=== PATIENT | female | born 1930 | race Caucasian/White ===

== ENCOUNTER 2016-10-05 17:52 | Emergency (ER) | payer MEDICARE ==
[2016-10-05 18:06] VITALS: RESP 18; TEMP 98.8
[2016-10-05] MEDS ORDERED: SODIUM CHLORIDE 0.9% 1,000 ML IV STA (18:18)
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
[2016-10-05 18:43] LABS: Basophils % (A) 1 %; CH 27.5; CHCM 32.1; Eosinophils # (A) 0.2 k/uL (0-0.7); Eosinophils % (A) 3 %; HCT 42.1 % (34.0-46.0); HDW 2.53; HGB 13.3 gm/dL (11.4-16.0); Luc # (Auto) 0.22; Luc % (Auto) 3; Lymphocytes # (A) 1.8 k/uL (1.0-4.8); Lymphocytes % (A) 28 %; MCH 27.2 pg (25.0-35.0); MCHC 31.7 g/dL (31.0-37.0); MCV 85.8 fL (80.0-100.0); Mean Platelet Volume 7.2; Monocytes # (A) 0.4 k/uL (0-1.0); Monocytes % (A) 7 %; Neutrophils # (A) 3.7 k/uL (1.3-7.7); Neutrophils % (A) 58 %; RBC 4.91 m/uL (3.80-5.40); RDW 14.9 % (11.5-15.5); WBC 6.4 k/uL (3.8-10.6); WBC (Perox) 6.15
[2016-10-05 18:52] LABS: Calcium 9.2 mg/dL (8.4-10.2); Magnesium 2.2 mg/dL (1.6-2.3); Potassium 4.3 mmol/L (3.5-5.1); Total Bilirubin 0.4 mg/dL (0.2-1.3); Total Protein 7.2 g/dL (6.3-8.2)
[2016-10-05 19:01] LABS: INR 1.1 (<1.1); Prothrombin Time 10.9 sec (9.0-12.0)
[2016-10-05 19:07] LABS: Creatine Kinase 49 U/L (30-135)
[2016-10-05 19:14] LABS: Partial Thromboplastin Time 20.1 sec (22.0-30.0)
[2016-10-05 19:21] LABS: Creatine Kinase MB 0.9 ng/mL (0.0-2.4); Troponin I <0.012 ng/mL (0.000-0.034)
--- NOTE | 2016-10-05 20:03 | XR ---
EXAMINATION TYPE: XR chest 2V DATE OF EXAM: 10/05/2016 COMPARISON: 03/07/2016 HISTORY: Chest pain TECHNIQUE: Frontal and lateral views of the chest are obtained. FINDINGS: There are numerous old left-sided healed rib fractures. There are are a few right-sided ol d healed rib fractures. Lungs are clear of consolidation. There is no heart failure. Heart is probabl y enlarged. Thoracic aorta is atheromatous. There is no pleural effusion. IMPRESSION: Cardiomegaly. No active cardiopulmonary disease. No change. No heart failure.
[2016-10-05 20:28] LABS: Appearance,Urine Clear (Clear); Bacteria,Urine Occasional /hpf; Bilirubin,Urine Negative (Negative); Glucose,Urine (UA) Negative (Negative); Ketones,Urine Negative (Negative); Leukocyte Esterase,Urine Negative (Negative); Mucus,Urine Rare /hpf; Nitrite,Urine Negative (Negative); PH, Urine 6.5 (5.0-8.0); Particle Count 1418; Protein,Urine Negative (Negative); RBC,Urine 12 /hpf (0-5); Specific Gravity,Urine 1.015 (1.001-1.035); UA Billing (MACRO vs. MICRO) MICRO; Urobilinogen,Urine <2.0 mg/dL (<2.0); WBC,Urine 1 /hpf (0-5)
[2016-10-05 22:31] VITALS: BP 175/76; PULSE 75
== END 2016-10-05 21:20 | disposition home or self-care (01) ==
LOC: EC 17:52
DX: R60.9 Edema, unspecified (principal); M54.9 Dorsalgia, unspecified; G89.29 Other chronic pain; R42 Dizziness and giddiness; M25.562 Pain in left knee; M25.561 Pain in right knee; I10 Essential (primary) hypertension; F32.9 Major depressive disorder, single episode, unspecified; H91.90 Unspecified hearing loss, unspecified ear; Z86.73 Personal history of transient ischemic attack (TIA), and cerebral infarction without residual deficits; Z79.82 Long term (current) use of aspirin; Z79.899 Other long term (current) drug therapy
CPT/HCPCS: 36415; 51798; 71020; 80053; 81001; 82550; 82553; 83735; 83880; 84484; 85025; 85610; 85730; 87077; 87086; 87186; 93005; 96360; 96361; 99284

== ENCOUNTER 2016-12-26 14:31 | Inpatient (IN) | payer MEDICARE ==
[2016-12-26] MEDS ORDERED: SODIUM CHLORIDE 0.9% 1,000 ML IV STA (15:08)
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
[2016-12-26 16:02] LABS: Basophils # (A) 0.1 k/uL (0-0.2); Basophils % (A) 0 %; Eosinophils # (A) 0.2 k/uL (0-0.7); Eosinophils % (A) 1 %; HCT 43.2 % (34.0-46.0); HDW 2.72; HGB 14.3 gm/dL (11.4-16.0); Luc # (Auto) 0.17; Luc % (Auto) 1; Lymphocytes # (A) 0.7 k/uL (1.0-4.8); Lymphocytes % (A) 5 %; MCH 28.1 pg (25.0-35.0); MCV 85.1 fL (80.0-100.0); Mean Platelet Volume 7.8; Monocytes # (A) 0.4 k/uL (0-1.0); Monocytes % (A) 3 %; Neutrophils # (A) 11.6 k/uL (1.3-7.7); Neutrophils % (A) 88 %; RBC 5.07 m/uL (3.80-5.40); RDW 15.6 % (11.5-15.5); WBC 13.1 k/uL (3.8-10.6); WBC (Perox) 13.12
[2016-12-26 16:10] LABS: Calcium 9.3 mg/dL (8.4-10.2); Total Bilirubin 0.8 mg/dL (0.2-1.3); Total Protein 7.5 g/dL (6.3-8.2)
[2016-12-26 16:23] LABS: Creatine Kinase 37 U/L (30-135)
[2016-12-26 16:36] LABS: Creatine Kinase MB <0.2 ng/mL (0.0-2.4); Troponin I <0.012 ng/mL (0.000-0.034)
--- NOTE | 2016-12-26 16:52 | XR ---
EXAMINATION TYPE: XR chest 2V DATE OF EXAM: 12/26/2016 COMPARISON: 10/05/2016 HISTORY: Urinary tract infection. Cough. TECHNIQUE: Frontal and lateral views of the chest are obtained. FINDINGS: There is general coarsening of interstitial markings. There are numerous old bilateral hea led rib fractures. Thoracic aorta is atheromatous. There are chest leads. There is no sign of pleural effusion. IMPRESSION: Lung markings are increased slightly compared to last exam and could relate to interstit ial pneumonia. Mild heart failure cannot be entirely excluded.
[2016-12-26 17:04] LABS: Appearance,Urine Clear (Clear); Bilirubin,Urine Negative (Negative); Glucose,Urine (UA) Negative (Negative); Ketones,Urine Negative (Negative); Leukocyte Esterase,Urine Negative (Negative); Nitrite,Urine Negative (Negative); PH, Urine 7.5 (5.0-8.0); Particle Count 1366; Protein,Urine Trace (Negative); RBC,Urine 44 /hpf (0-5); UA Billing (MACRO vs. MICRO) MICRO; Urobilinogen,Urine <2.0 mg/dL (<2.0); WBC,Urine 1 /hpf (0-5)
[2016-12-26] MEDS ORDERED: LEVOFLOXACIN 750MG-D5W PMX 750 MG in DEXTROSE/WATER 1 150ML.BAG IVPB STA (17:15)
[2016-12-26] MEDS ORDERED: PNEUMONIA PROTOCOL UTILIZED 1 EACH MISC PO PRN (17:15)
[2016-12-26] MEDS ORDERED: FAMOTIDINE 20 MG TAB PO PRN (17:16)
[2016-12-26] MEDS ORDERED: IBUPROFEN 400 MG TAB PO PRN (17:17)
[2016-12-26] MEDS ORDERED: ACETAMINOPHEN TAB 325 MG TAB PO PRN (17:17)
[2016-12-26] MEDS ORDERED: NALOXONE 0.4 MG/ML 1 ML VIAL IV PRN (17:17)
[2016-12-26] MEDS: SODIUM CHLORIDE 0.9% 1,000 ML IV SCH (18:41)
[2016-12-26 19:41] VITALS: BMI 31.1
[2016-12-26] MEDS: IPRATROPIUM-ALBUTEROL 3 ML NEB INHALATION PRN (21:07)
[2016-12-26] MEDS: BUDESONIDE 0.5 MG/2 ML NEBU INHALATION SCH (21:07)
[2016-12-26] MEDS: amLODIPine 2.5 MG TAB PO SCH (21:29)
[2016-12-26] MEDS: clonazePAM 0.5 MG TAB PO SCH (21:29)
[2016-12-26] MEDS: GABAPENTIN 100 MG CAP PO SCH (21:29)
[2016-12-26 22:20] LABS: Creatine Kinase 57 U/L (30-135)
[2016-12-26 22:33] LABS: Creatine Kinase MB 0.8 ng/mL (0.0-2.4); Troponin I <0.012 ng/mL (0.000-0.034)
[2016-12-27 05:17] LABS: Creatine Kinase 78 U/L (30-135)
[2016-12-27 05:29] LABS: Troponin I <0.012 ng/mL (0.000-0.034)
--- NOTE | 2016-12-27 07:31 | XR ---
EXAMINATION TYPE: XR chest 2V DATE OF EXAM: 12/27/2016 COMPARISON: 12/26/2016 HISTORY: Pneumonia TECHNIQUE: Frontal and lateral views of the chest are obtained. FINDINGS: Persistent small left pleural effusion is present with associated left basilar atelectasis . Increased interstitial changes likely relates to mild interstitial pulmonary edema. Cardiac size is again mildly enlarged although partially silhouetted by the left pleural effusion. Degenerative royal ges of the thoracic spine, glenohumeral joints, and acromio clavicular joints are seen as well as mul tiple old callused bilateral rib fractures. IMPRESSION: Similar mild interstitial edema which may relate to decompensated congestive heart failu re with small left pleural effusion and left basilar atelectasis.
[2016-12-27] MEDS: BUDESONIDE 0.5 MG/2 ML NEBU INHALATION SCH ×2 (07:35→20:38)
[2016-12-27] MEDS: IPRATROPIUM-ALBUTEROL 3 ML NEB INHALATION PRN ×3 (07:35→20:38)
[2016-12-27] MEDS: ASPIRIN 81 MG CHEW PO SCH (08:31)
[2016-12-27] MEDS: clonazePAM 0.5 MG TAB PO SCH ×3 (08:31→21:17)
[2016-12-27] MEDS: SERTRALINE 50 MG TAB PO SCH (08:31)
[2016-12-27] MEDS: GABAPENTIN 100 MG CAP PO SCH ×2 (08:31→21:17)
[2016-12-27] MEDS: LISINOPRIL 10 MG TAB PO SCH (08:32)
[2016-12-27] MEDS: SODIUM CHLORIDE 0.9% 1,000 ML IV SCH ×2 (08:32→16:10)
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
[2016-12-27] MEDS ORDERED: LEVOFLOXACIN 750 MG TAB PO SCH (17:00)
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
[2016-12-27] MEDS: amLODIPine 2.5 MG TAB PO SCH (20:24)
[2016-12-28] MEDS: SODIUM CHLORIDE 0.9% 1,000 ML IV SCH ×2 (05:13→11:53)
[2016-12-28] MEDS: ASPIRIN 81 MG CHEW PO SCH (07:38)
[2016-12-28] MEDS: GABAPENTIN 100 MG CAP PO SCH ×2 (07:39→21:08)
[2016-12-28] MEDS: LISINOPRIL 10 MG TAB PO SCH (07:39)
[2016-12-28] MEDS: SERTRALINE 50 MG TAB PO SCH (07:41)
[2016-12-28] MEDS: clonazePAM 0.5 MG TAB PO SCH ×3 (07:45→21:11)
[2016-12-28 09:13] LABS: Basophils % (A) 0 %; CH 26.3; CHCM 31.4; Eosinophils # (A) 0.2 k/uL (0-0.7); Eosinophils % (A) 3 %; HCT 39.8 % (34.0-46.0); HDW 2.74; Hypochromasia Slight; Luc % (Auto) 3; Lymphocytes % (A) 17 %; MCH 27.4 pg (25.0-35.0); MCHC 32.6 g/dL (31.0-37.0); MCV 84.2 fL (80.0-100.0); Mean Platelet Volume 6.9; Monocytes # (A) 0.5 k/uL (0-1.0); Monocytes % (A) 8 %; Neutrophils # (A) 4.2 k/uL (1.3-7.7); Neutrophils % (A) 69 %; RBC 4.73 m/uL (3.80-5.40); RDW 14.8 % (11.5-15.5); WBC 6.1 k/uL (3.8-10.6); WBC (Perox) 6.26
[2016-12-28] MEDS: BUDESONIDE 0.5 MG/2 ML NEBU INHALATION SCH ×2 (09:23→18:47)
[2016-12-28 09:26] LABS: Calcium 8.7 mg/dL (8.4-10.2); Potassium 4.3 mmol/L (3.5-5.1); Total Bilirubin 0.4 mg/dL (0.2-1.3); Total Protein 6.6 g/dL (6.3-8.2)
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
[2016-12-28] MEDS: IPRATROPIUM-ALBUTEROL 3 ML NEB INHALATION PRN ×2 (15:19→18:47)
[2016-12-28] MEDS: LEVOFLOXACIN 750 MG TAB PO SCH (17:38)
[2016-12-28] MEDS: amLODIPine 2.5 MG TAB PO SCH (21:08)
[2016-12-28] MEDS: HEPARIN SODIUM,PORCINE 5,000 UNIT/ML 1 ML VIAL SQ SCH (21:09)
[2016-12-29] MEDS: IPRATROPIUM-ALBUTEROL 3 ML NEB INHALATION PRN ×2 (06:59→21:03)
[2016-12-29] MEDS: BUDESONIDE 0.5 MG/2 ML NEBU INHALATION SCH ×2 (06:59→21:03)
[2016-12-29 07:19] LABS: Basophils % (A) 0 %; CH 27.6; Eosinophils # (A) 0.2 k/uL (0-0.7); Eosinophils % (A) 3 %; HCT 40.7 % (34.0-46.0); HDW 2.81; Luc # (Auto) 0.18; Luc % (Auto) 3; Lymphocytes % (A) 15 %; MCH 26.9 pg (25.0-35.0); MCV 84.1 fL (80.0-100.0); Mean Platelet Volume 7.9; Monocytes # (A) 0.3 k/uL (0-1.0); Monocytes % (A) 5 %; Neutrophils # (A) 5.1 k/uL (1.3-7.7); Neutrophils % (A) 74 %; RBC 4.84 m/uL (3.80-5.40); RDW 15.6 % (11.5-15.5); WBC 6.8 k/uL (3.8-10.6)
[2016-12-29 07:27] LABS: Calcium 9.3 mg/dL (8.4-10.2); Potassium 4.2 mmol/L (3.5-5.1); Total Bilirubin 0.4 mg/dL (0.2-1.3); Total Protein 7.2 g/dL (6.3-8.2)
[2016-12-29] MEDS: clonazePAM 0.5 MG TAB PO SCH ×3 (07:59→21:32)
[2016-12-29] MEDS: ASPIRIN 81 MG CHEW PO SCH (08:00)
[2016-12-29] MEDS: GABAPENTIN 100 MG CAP PO SCH ×2 (08:00→21:33)
[2016-12-29] MEDS: SERTRALINE 50 MG TAB PO SCH (08:00)
[2016-12-29] MEDS: HEPARIN SODIUM,PORCINE 5,000 UNIT/ML 1 ML VIAL SQ SCH ×2 (08:00→21:33)
[2016-12-29] MEDS: LISINOPRIL 10 MG TAB PO SCH (08:00)
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
[2016-12-29] MEDS: amLODIPine 2.5 MG TAB PO SCH (21:32)
[2016-12-30 06:50] LABS: Basophils % (A) 0 %; CH 26.3; CHCM 31.8; Eosinophils # (A) 0.2 k/uL (0-0.7); Eosinophils % (A) 3 %; HCT 37.8 % (34.0-46.0); HDW 2.75; HGB 12.5 gm/dL (11.4-16.0); Luc # (Auto) 0.21; Luc % (Auto) 3; Lymphocytes # (A) 1.4 k/uL (1.0-4.8); Lymphocytes % (A) 22 %; MCH 27.5 pg (25.0-35.0); MCV 83.2 fL (80.0-100.0); Monocytes # (A) 0.5 k/uL (0-1.0); Monocytes % (A) 7 %; Neutrophils # (A) 4.1 k/uL (1.3-7.7); Neutrophils % (A) 64 %; RBC 4.54 m/uL (3.80-5.40); RDW 14.9 % (11.5-15.5); WBC 6.4 k/uL (3.8-10.6); WBC (Perox) 6.22
[2016-12-30 07:11] LABS: Calcium 9.1 mg/dL (8.4-10.2); Potassium 4.2 mmol/L (3.5-5.1); Total Bilirubin 0.4 mg/dL (0.2-1.3); Total Protein 6.3 g/dL (6.3-8.2)
[2016-12-30] MEDS: GABAPENTIN 100 MG CAP PO SCH ×2 (09:01→21:19)
[2016-12-30] MEDS: SERTRALINE 50 MG TAB PO SCH (09:02)
[2016-12-30] MEDS: HEPARIN SODIUM,PORCINE 5,000 UNIT/ML 1 ML VIAL SQ SCH ×2 (09:02→21:20)
[2016-12-30] MEDS: LISINOPRIL 10 MG TAB PO SCH (09:02)
[2016-12-30] MEDS: clonazePAM 0.5 MG TAB PO SCH ×3 (09:02→21:19)
[2016-12-30] MEDS: ASPIRIN 81 MG CHEW PO SCH (09:02)
[2016-12-30] MEDS: IPRATROPIUM-ALBUTEROL 3 ML NEB INHALATION PRN ×2 (09:44→22:04)
[2016-12-30] MEDS: BUDESONIDE 0.5 MG/2 ML NEBU INHALATION SCH ×2 (09:44→22:04)
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
[2016-12-30] MEDS: LEVOFLOXACIN 750 MG TAB PO SCH (16:17)
[2016-12-30] MEDS: amLODIPine 2.5 MG TAB PO SCH (21:20)
[2016-12-31 08:01] LABS: Basophils % (A) 0 %; CH 26.2; CHCM 31.7; Eosinophils # (A) 0.2 k/uL (0-0.7); Eosinophils % (A) 2 %; HCT 37.6 % (34.0-46.0); HGB 12.3 gm/dL (11.4-16.0); Hypochromasia Slight; Luc # (Auto) 0.25; Luc % (Auto) 4; Lymphocytes # (A) 1.4 k/uL (1.0-4.8); Lymphocytes % (A) 21 %; MCH 27.3 pg (25.0-35.0); MCHC 32.8 g/dL (31.0-37.0); MCV 83.1 fL (80.0-100.0); Mean Platelet Volume 6.9; Monocytes # (A) 0.4 k/uL (0-1.0); Monocytes % (A) 7 %; Neutrophils # (A) 4.4 k/uL (1.3-7.7); Neutrophils % (A) 66 %; RBC 4.53 m/uL (3.80-5.40); RDW 14.8 % (11.5-15.5); WBC 6.7 k/uL (3.8-10.6); WBC (Perox) 6.87
[2016-12-31 08:26] LABS: Calcium 9.2 mg/dL (8.4-10.2); Potassium 4.7 mmol/L (3.5-5.1); Total Bilirubin 0.4 mg/dL (0.2-1.3); Total Protein 6.4 g/dL (6.3-8.2)
[2016-12-31] MEDS: BUDESONIDE 0.5 MG/2 ML NEBU INHALATION SCH ×2 (08:29→20:11)
[2016-12-31] MEDS: IPRATROPIUM-ALBUTEROL 3 ML NEB INHALATION PRN ×2 (08:29→20:11)
[2016-12-31] MEDS: LISINOPRIL 10 MG TAB PO SCH (08:47)
[2016-12-31] MEDS: GABAPENTIN 100 MG CAP PO SCH ×2 (08:47→21:54)
[2016-12-31] MEDS: SERTRALINE 50 MG TAB PO SCH (08:47)
[2016-12-31] MEDS: HEPARIN SODIUM,PORCINE 5,000 UNIT/ML 1 ML VIAL SQ SCH ×2 (08:47→21:54)
[2016-12-31] MEDS: ASPIRIN 81 MG CHEW PO SCH (08:47)
[2016-12-31] MEDS: clonazePAM 0.5 MG TAB PO SCH ×3 (08:52→21:54)
[2016-12-31] MEDS: amLODIPine 2.5 MG TAB PO SCH (21:54)
[2017-01-01 07:29] LABS: Basophils # (A) 0.1 k/uL (0-0.2); Basophils % (A) 1 %; CH 26.4; CHCM 31.4; Eosinophils # (A) 0.2 k/uL (0-0.7); Eosinophils % (A) 2 %; HCT 38.1 % (34.0-46.0); HDW 2.64; HGB 12.5 gm/dL (11.4-16.0); Hypochromasia Slight; Luc % (Auto) 3; Lymphocytes # (A) 1.8 k/uL (1.0-4.8); Lymphocytes % (A) 26 %; MCH 27.7 pg (25.0-35.0); MCHC 32.8 g/dL (31.0-37.0); MCV 84.4 fL (80.0-100.0); Mean Platelet Volume 7.3; Monocytes # (A) 0.5 k/uL (0-1.0); Monocytes % (A) 7 %; Neutrophils # (A) 4.5 k/uL (1.3-7.7); Neutrophils % (A) 62 %; RBC 4.51 m/uL (3.80-5.40); RDW 14.8 % (11.5-15.5); WBC 7.2 k/uL (3.8-10.6); WBC (Perox) 7.19
[2017-01-01 07:58] LABS: Calcium 9.1 mg/dL (8.4-10.2); Potassium 4.5 mmol/L (3.5-5.1)
[2017-01-01] MEDS: GABAPENTIN 100 MG CAP PO SCH ×2 (08:29→21:46)
[2017-01-01] MEDS: ASPIRIN 81 MG CHEW PO SCH (08:29)
[2017-01-01] MEDS: LISINOPRIL 10 MG TAB PO SCH (08:30)
[2017-01-01] MEDS: HEPARIN SODIUM,PORCINE 5,000 UNIT/ML 1 ML VIAL SQ SCH ×2 (08:30→21:46)
[2017-01-01] MEDS: SERTRALINE 50 MG TAB PO SCH (08:30)
[2017-01-01] MEDS: clonazePAM 0.5 MG TAB PO SCH ×3 (08:35→21:46)
[2017-01-01] MEDS: BUDESONIDE 0.5 MG/2 ML NEBU INHALATION SCH ×2 (08:47→20:04)
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
[2017-01-01] MEDS: LEVOFLOXACIN 750 MG TAB PO SCH (16:03)
[2017-01-01] MEDS: IPRATROPIUM-ALBUTEROL 3 ML NEB INHALATION PRN (20:03)
[2017-01-01] MEDS: amLODIPine 2.5 MG TAB PO SCH (21:46)
[2017-01-02 08:05] VITALS: BP 136/71; RESP 18; TEMP 97.5
[2017-01-02] MEDS: SERTRALINE 50 MG TAB PO SCH (08:12)
[2017-01-02] MEDS: HEPARIN SODIUM,PORCINE 5,000 UNIT/ML 1 ML VIAL SQ SCH (08:12)
[2017-01-02] MEDS: GABAPENTIN 100 MG CAP PO SCH (08:12)
[2017-01-02] MEDS: ASPIRIN 81 MG CHEW PO SCH (08:13)
[2017-01-02] MEDS: LISINOPRIL 10 MG TAB PO SCH (08:13)
[2017-01-02] MEDS: IPRATROPIUM-ALBUTEROL 3 ML NEB INHALATION PRN (08:14)
[2017-01-02] MEDS: BUDESONIDE 0.5 MG/2 ML NEBU INHALATION SCH (08:14)
[2017-01-02 08:21] LABS: Calcium 9.3 mg/dL (8.4-10.2); Potassium 4.8 mmol/L (3.5-5.1)
[2017-01-02] MEDS: clonazePAM 0.5 MG TAB PO SCH (08:26)
[2017-01-02 09:41] VITALS: PULSE 80
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
== END 2017-01-02 14:10 | disposition home health service (06) | DRG 193 ==
LOC: EC 14:31 → 5MS5E 17:28
PROVIDERS: ADMIT Internal Medicine; ATTEND Internal Medicine
DX: J18.9 Pneumonia, unspecified organism (principal); J96.01 Acute respiratory failure with hypoxia; N39.0 Urinary tract infection, site not specified; I12.9 Hypertensive chronic kidney disease with stage 1 through stage 4 chronic kidney disease, or unspecified chronic kidney disease; F32.9 Major depressive disorder, single episode, unspecified; F41.9 Anxiety disorder, unspecified; H91.93 Unspecified hearing loss, bilateral; M19.90 Unspecified osteoarthritis, unspecified site; N18.3 Chronic kidney disease, stage 3 (moderate); Z79.899 Other long term (current) drug therapy; Z80.3 Family history of malignant neoplasm of breast; Z82.49 Family history of ischemic heart disease and other diseases of the circulatory system; Z86.73 Personal history of transient ischemic attack (TIA), and cerebral infarction without residual deficits; Z87.440 Personal history of urinary (tract) infections; Z79.82 Long term (current) use of aspirin
CPT/HCPCS: 36415; 71020; 80048; 80053; 81001; 82550; 82553; 83605; 83880; 84484; 85025; 87040; 87086; 93005; 94640; 94760; 96360; 96361; 99284

== ENCOUNTER 2017-07-11 12:27 | Observation (INO) | payer MEDICARE ==
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
[2017-07-11 13:53] LABS: Anisocytosis Slight; Basophils # (A) 0.1 k/uL (0-0.2); Basophils % (A) 1 %; Eosinophils # (A) 0.2 k/uL (0-0.7); Eosinophils % (A) 2 %; HCT 40.7 % (34.0-46.0); HGB 13.1 gm/dL (11.4-16.0); Lymphocytes # (A) 2.1 k/uL (1.0-4.8); Lymphocytes % (A) 25 %; MCH 26.4 pg (25.0-35.0); MCHC 32.1 g/dL (31.0-37.0); Mean Platelet Volume 7.6; Monocytes # (A) 0.5 k/uL (0-1.0); Monocytes % (A) 6 %; Neutrophils # (A) 5.4 k/uL (1.3-7.7); Neutrophils % (A) 64 %; Platelet Count 202 k/uL (150-450); RBC 4.96 m/uL (3.80-5.40); RDW 16.1 % (11.5-15.5); WBC 8.6 k/uL (3.8-10.6)
[2017-07-11 14:00] LABS: INR 1.1 (<1.2); Prothrombin Time 10.7 sec (9.0-12.0)
[2017-07-11] MEDS: SODIUM CHLORIDE 0.9% 1,000 ML IV STA (14:00)
[2017-07-11 14:05] LABS: Albumin 3.9 g/dL (3.5-5.0); Calcium 9.4 mg/dL (8.4-10.2); Magnesium 2.2 mg/dL (1.6-2.3); Phosphorus 4.2 mg/dL (2.5-4.5); Total Bilirubin 0.4 mg/dL (0.2-1.3); Total Protein 6.9 g/dL (6.3-8.2)
[2017-07-11 14:22] LABS: Partial Thromboplastin Time 21.8 sec (22.0-30.0)
[2017-07-11 14:29] LABS: Creatine Kinase 35 U/L (30-135)
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
[2017-07-11 14:43] LABS: Creatine Kinase MB 0.4 ng/mL (0.0-2.4); Troponin I <0.012 ng/mL (0.000-0.034)
[2017-07-11 15:02] LABS: Appearance,Urine Clear (Clear); Bilirubin,Urine Negative (Negative); Blood,Urine Trace (Negative); Color,Urine Yellow; Glucose,Urine (UA) Negative (Negative); Hyaline Casts,Urine 4 /lpf (0-2); Ketones,Urine Negative (Negative); Leukocyte Esterase,Urine Negative (Negative); Mucus,Urine Rare /hpf; Nitrite,Urine Negative (Negative); PH, Urine 5.5 (5.0-8.0); Protein,Urine Negative (Negative); RBC,Urine 14 /hpf (0-5); Specific Gravity,Urine 1.014 (1.001-1.035); Squamous Epithelial Cell,Urine 2 /hpf (0-4); Urobilinogen,Urine <2.0 mg/dL (<2.0); WBC,Urine 2 /hpf (0-5)
--- NOTE | 2017-07-11 17:08 | CT ---
EXAMINATION TYPE: CT brain maggie rodriguez DATE OF EXAM: 07/11/2017 COMPARISON: Head CT scan 04/19/2017 HISTORY: Headache. Neck pain. Trauma. CT DLP: 1595 mGycm Automated exposure control for dose reduction was used. TECHNIQUE: CT scan of the head and cervical spine are performed without contrast. FINDINGS: There is cerebral cortical atrophy. There is no mass effect nor midline shift. There is n o evidence of intracranial hemorrhage. There is enlargement of right sylvian fissure consistent with an old right temporal lobe infarct. There is also 2 x 1 cm lacunar infarct in the right internal caps ule. The calvarium is intact. The cervical vertebra have fairly normal alignment. There is narrowing at C5-6 C6-7 disc spaces with spurring. There is some bony spinal stenosis at C6-7 due to posterior endplate spur formation. This i s more towards the left side. The posterior elements are intact. Skull base appears intact. There is multilevel cervical facet arthropathy. 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 No change. Spondylotic changes in the cervical spine with some bony spinal stenosis at C6-7. No fracture seen.
--- NOTE | 2017-07-11 18:15 | XR ---
EXAMINATION TYPE: XR pelvis AP view DATE OF EXAM: 07/11/2017 COMPARISON: NONE HISTORY: Pain TECHNIQUE: Single view FINDINGS: There is deformity of the left and right pubic bone related to old healed fractures. I see no acute fracture. Sacroiliac joints appear intact. There is osteopenia. Proximal femurs appear intac t. IMPRESSION: No acute abnormality of the pelvis. Old bilateral pubic rami fractures.
[2017-07-11 19:41] VITALS: BMI 30.2
[2017-07-11] MEDS: clonazePAM 0.5 MG TAB PO SCH (21:06)
[2017-07-11] MEDS: GABAPENTIN 100 MG CAP PO SCH (21:06)
[2017-07-11] MEDS: amLODIPine 2.5 MG TAB PO SCH (21:06)
[2017-07-12] MEDS: SERTRALINE 100 MG TAB PO SCH (10:30)
[2017-07-12] MEDS: LISINOPRIL 10 MG TAB PO SCH (10:31)
[2017-07-12] MEDS: clonazePAM 0.5 MG TAB PO SCH ×2 (10:31→20:14)
[2017-07-12] MEDS: GABAPENTIN 100 MG CAP PO SCH ×2 (10:32→20:14)
[2017-07-12] MEDS: SODIUM CHLORIDE 0.9% 1,000 ML IV STA (10:33)
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
--- NOTE | 2017-07-12 16:45 | US ---
EXAMINATION TYPE: US venous doppler duplex LE BI DATE OF EXAM: 07/12/2017 3:17 PM COMPARISON: None CLINICAL HISTORY: 78-year-old female leg swelling and feet discoloration. Poor historian SIDE PERFORMED: Bilateral TECHNIQUE: The lower extremity deep venous system is examined utilizing real time linear array sonog shy with graded compression, doppler sonography and color-flow sonography. FINDINGS: VESSELS IMAGED: External Iliac Vein (EIV) Common Femoral Vein Deep Femoral Vein Greater Saphenous Vein * Femoral Vein Popliteal Vein Small Saphenous Vein * Proximal Calf Veins (* superficial vessels) Right Leg: Negative for DVT Left Leg: Negative for DVT IMPRESSION: No evidence for DVT within the bilateral lower extremities imaged from the groin to the upper calves.
[2017-07-12] MEDS: ENOXAPARIN 40 MG/0.4 ML SYRINGE SQ SCH (18:17)
[2017-07-12] MEDS: amLODIPine 2.5 MG TAB PO SCH (20:14)
[2017-07-13 01:49] VITALS: RESP 16
[2017-07-13 07:31] LABS: Basophils % (A) 1 %; Eosinophils # (A) 0.2 k/uL (0-0.7); Eosinophils % (A) 4 %; HCT 39.9 % (34.0-46.0); HGB 12.7 gm/dL (11.4-16.0); Lymphocytes # (A) 1.8 k/uL (1.0-4.8); Lymphocytes % (A) 31 %; MCHC 31.8 g/dL (31.0-37.0); MCV 81.7 fL (80.0-100.0); Mean Platelet Volume 7.4; Monocytes # (A) 0.4 k/uL (0-1.0); Monocytes % (A) 7 %; Neutrophils # (A) 3.2 k/uL (1.3-7.7); Neutrophils % (A) 54 %; Platelet Count 185 k/uL (150-450); RBC 4.89 m/uL (3.80-5.40); RDW 15.7 % (11.5-15.5); WBC 5.8 k/uL (3.8-10.6)
[2017-07-13] MEDS: clonazePAM 0.5 MG TAB PO SCH (07:36)
[2017-07-13] MEDS: ENOXAPARIN 40 MG/0.4 ML SYRINGE SQ SCH (07:36)
[2017-07-13] MEDS: SERTRALINE 100 MG TAB PO SCH (07:36)
[2017-07-13] MEDS: LISINOPRIL 10 MG TAB PO SCH (07:36)
[2017-07-13] MEDS: GABAPENTIN 100 MG CAP PO SCH (07:37)
[2017-07-13 07:55] LABS: Albumin 3.5 g/dL (3.5-5.0); Potassium 4.1 mmol/L (3.5-5.1); Total Bilirubin 0.6 mg/dL (0.2-1.3); Total Protein 6.5 g/dL (6.3-8.2)
[2017-07-13] MEDS ORDERED: FAMOTIDINE 20 MG TAB PO SCH (09:00)
[2017-07-13 11:36] VITALS: PULSE 85; TEMP 98.1
--- NOTE | 2017-07-13 11:55 | CONS ---
CONSULTATION This is an 86-year-old female. I was consulted for discoloration of the both feet. Patient has been admitted with history of hypertension, history of fall. Patient has history of hearing disorder, hypertension. PHYSICAL EXAMINATION: Patient was seen in her room. She was lying comfortably in bed. Her neck was supple. Chest is clear to auscultation. First and second sounds normal. Abdomen was soft, femorals are 1+. Posterior tibial vessels not palpable. No venostasis ulcer. No varicosities noted. Both feet are warm. At this point, patient has some chronic vascular occlusive disease. PLAN: Patient is going home and we will follow in the office. At this point, patient does not need any major surgical intervention. We will follow in the office. MMODL / IJN: [id number] /
[2017-07-13] MEDS ORDERED: amLODIPine 5 MG TAB PO STA (14:28)
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
[2017-07-13 14:56] VITALS: BP 177/100
== END 2017-07-13 15:35 | disposition home health service (06) ==
LOC: EC 12:27 → 3SUR 15:59
PROVIDERS: ADMIT Internal Medicine; ATTEND Internal Medicine
DX: R53.1 Weakness (principal); R29.6 Repeated falls; M48.02 Spinal stenosis, cervical region; I99.8 Other disorder of circulatory system; R26.2 Difficulty in walking, not elsewhere classified; I12.9 Hypertensive chronic kidney disease with stage 1 through stage 4 chronic kidney disease, or unspecified chronic kidney disease; N18.3 Chronic kidney disease, stage 3 (moderate); Z79.899 Other long term (current) drug therapy; M79.89 Other specified soft tissue disorders; H91.90 Unspecified hearing loss, unspecified ear; Z86.73 Personal history of transient ischemic attack (TIA), and cerebral infarction without residual deficits; M54.9 Dorsalgia, unspecified; G89.29 Other chronic pain; R13.10 Dysphagia, unspecified; R06.02 Shortness of breath; M19.90 Unspecified osteoarthritis, unspecified site; F41.9 Anxiety disorder, unspecified; F32.9 Major depressive disorder, single episode, unspecified; Z83.3 Family history of diabetes mellitus; Z82.49 Family history of ischemic heart disease and other diseases of the circulatory system; Z80.3 Family history of malignant neoplasm of breast; Z87.828 Personal history of other (healed) physical injury and trauma
CPT/HCPCS: 36415; 70450; 71046; 72125; 72170; 80053; 81001; 82550; 82553; 83735; 83880; 84100; 84484; 85025; 85610; 85730; 87086; 93005; 93970; 96360; 96361; 96372; 99285